=== PATIENT | female | born 1975 | race Caucasian/White ===

== ENCOUNTER → 2016-06-15 | Outpatient (CLI) | payer BC ==
[~2016-06-15] MED LIST: ACHYD1T PO; ALPR0.25 PO; ASPI-586 PO; CPR500T PO; CYCL10TA45 GT; DCS100C PO; DOCU100C37 PO; HYDR118S10 PO; IBP800T PO; IBUP-1780 PO; METO-274 PO; OXYC-465 PO; PREN1TAB39 PO; PRM25T PO
--- NOTE | 2016-06-16 14:29 | ECHOCARDIOGRAPHY REPORT ---
DATE OF SERVICE: 06/15/2016 DATE OF SERVICE: 06/15/2016. PRIMARY PHYSICIAN: Dr. Campuzano. PRIMARY CARE PHYSICIAN: Dr. Atkins. CLINICAL DIAGNOSES: Palpitations, paroxysmal atrial fibrillation. MEASUREMENTS: Left atrium: 3.4. Aortic root: 2.6. LV diameter diastolic: 4.8. IVS thickness diastolic: 0.8. LVPW thickness diastolic: 0.9. DESCRIPTION: Two-dimensional echocardiography shows normal global left ventricular systolic function without any distinctive regional wall motion abnormality. Aortic, mitral and tricuspid valve leaflets show good leaflet excursion. Aortic valve appears to be trileaflet. Doppler imaging does not indicate any evidence of any significant valvular stenosis. Trivial to mild mitral, tricuspid and pulmonic regurgitation is seen. Pulmonary artery systolic pressure is estimated to be approximately 25 mmHg. There is no evidence of any significant intracardiac shunt on this transthoracic echocardiographic study. Inferior vena cava is of normal size. CONCLUSIONS: 1. Normal global left ventricular systolic function with an ejection fraction of approximately 60%. 2. Trivial to mild mitral, tricuspid and pulmonic regurgitation. 3. No evidence of any significant valvular stenosis. 4. Pulmonary artery systolic pressure is estimated to be approximately 25 mmHg. Job ID: [id number] DocumentID: [id number] Dictated Date: 06/16/2016 10:07:43 Rotary Drum Tanner Date: 06/16/2016 13:51:11 Dictated By: DAVE CAMPUZANO MD, MA, FACP, FACC,
== END ==
LOC: CARD 07:50
PROVIDERS: ATTEND Internal Medicine Cardiovascular Disease
DX: I48.0 Paroxysmal atrial fibrillation (principal); R00.2 Palpitations
CPT/HCPCS: 93306

== ENCOUNTER 2016-06-24 17:00 | Outpatient (CLI) | payer BC | END 2016-06-24 17:25 | disposition home or self-care (01) | LOC: SLEEP 17:00 | PROVIDERS: ATTEND Nurse Practitioner Family | DX: G47.33 Obstructive sleep apnea (adult) (pediatric) (principal) ==

== ENCOUNTER → 2016-09-20 | Outpatient (CLI) | payer BC | LOC: RAD 07:31 | PROVIDERS: ATTEND Obstetrics & Gynecology | DX: Z12.31 Encounter for screening mammogram for malignant neoplasm of breast (principal) | CPT/HCPCS: 77067 ==

== ENCOUNTER 2016-12-13 09:49 | Emergency (ER) | payer OTHER, BC ==
[~2016-12-13] VITALS: Ht 165.1 cm; Wt 99.8 kg
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
[2016-12-13] MEDS ORDERED: APIX2.5T PO (10:06)
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
[2016-12-13] MEDS ORDERED: CYCL10TA9 PO (11:05)
[2016-12-13 11:18] VITALS: BP 124/73
== END 2016-12-13 11:18 | disposition home or self-care (01) ==
LOC: EDUNIT# 09:49 → ER 09:51
DX: M54.2 Cervicalgia (principal); I48.91 Unspecified atrial fibrillation; Z79.01 Long term (current) use of anticoagulants; Z98.890 Other specified postprocedural states; Z87.59 Personal history of other complications of pregnancy, childbirth and the puerperium; Z90.710 Acquired absence of both cervix and uterus; V49.60XA Unspecified car occupant injured in collision with unspecified motor vehicles in traffic accident, initial encounter
CPT/HCPCS: 70450; 72125; 99282

== ENCOUNTER → 2017-05-24 | Outpatient (CLI) | payer BC, OTHER ==
[~2017-05-24] MED LIST changes: +APIX2.5T PO; +CYCL10TA9 PO; -METO-274 PO; +METO-395 PO
--- NOTE | 2017-05-24 10:55 | Diagnostic Imaging Report ---
INDICATION: Right breast pain and right breast lump in the upper outer aspect. This study was performed for further evaluation. COMPARISON: Correlation is made with a diagnostic mammogram from 05/24/2017. FINDINGS: Sonographic interrogation of the area of palpable abnormality in the upper-outer right breast was performed. No solid or cystic mass is identified. IMPRESSION: No sonographic abnormality is identified. Continued close clinical and self breast exams are recommended to confirm stability of the palpable abnormality. ACR BI-RADS Category 1: Negative. Dictated by: Dictated on workstation # [id number]
--- NOTE | 2017-05-24 10:58 | Diagnostic Imaging Report ---
INDICATION: Mastalgia on the right with a palpable lump in the upper-outer right breast. COMPARISON: Correlation is made with the prior mammogram from 09/20/2016. TECHNIQUE: A BB marker was placed at the area of palpable abnormality in the upper-outer right breast at posterior depth. 3D CC, MLO, ML, and exaggerated CC views of the right breast were obtained. The current study was also evaluated with a Computer Aided Detection (CAD) system. FINDINGS: The right breast is primarily involutional. The parenchymal pattern is stable. There is a tiny well-defined nodule in the upper right breast which appears stable and most consistent with a benign etiology. No spiculated mass or malignant appearing microcalcifications are seen. Specifically, no abnormality at the area of the BB marker is identified. The right axilla is unremarkable. IMPRESSION: Stable right mammogram. No suspicious abnormality is seen. Even so, directed sonographic interrogation of the area of palpable abnormality in the right breast is recommended and will be performed this morning. ACR BI-RADS Category 0: Incomplete. (Needs additional imaging evaluation). Result letter will be mailed to the patient. Note: At least 10% of breast cancer is not imaged by mammography. Dictated by: Dictated on workstation # [id number]
== END ==
LOC: RAD 08:01
PROVIDERS: ATTEND Family Medicine
DX: N63.11 Unspecified lump in the right breast, upper outer quadrant (principal)

== ENCOUNTER → 2019-01-28 | Outpatient (CLI) | payer BC ==
[~2019-01-28] VITALS: Ht 165.1 cm; Wt 68.2 kg
--- NOTE | 2019-01-28 15:01 | Diagnostic Imaging Report ---
INDICATION: Right hip pain. Patient presents for right hip injection prior to MRI. FINDINGS: Patient was brought to the procedure room, placed on the table in the supine position. Skin of the right hip was prepped and draped in the usual sterile fashion. Small amount of 1% lidocaine was utilized for local anesthesia. 20-gauge needle was advanced, placed with its tip at the femoral head neck junction laterally. 15 mL solution of iodinated contrast, normal saline, and gadolinium was injected under fluoroscopic observation. 19 seconds of fluoroscopic time was utilized. Needle was removed and hemostasis was obtained. Patient tolerated the procedure well and was sent to MRI in satisfactory condition. IMPRESSION: Successful right hip injection of gadolinium contrast solution, using fluoroscopy. Dictated by: Dictated on workstation # [id number]
--- NOTE | 2019-01-28 15:37 | Diagnostic Imaging Report ---
EXAMINATION: Magnetic resonance imaging of the pelvis and right hip with intra-articular contrast. DATE: January 28, 2019. COMPARISON: Right hip arthrogram January 28, 2019. CT abdomen and pelvis November 28, 2013. INDICATION: 43-year-old female, right hip pain. TECHNIQUE: Magnetic Resonance Imaging sequences were performed of the pelvis and right hip following the intra-articular administration of contrast. TENDONS AND MUSCLES: The gluteus damari muscles and their origins and insertions are intact bilaterally. There is feathery edema in the right gluteus minimus muscle at and above the level of the myotendinous junction, consistent with a low-grade tendinous strain injury. The right gluteus minimus tendon itself is intact. The right gluteus medius tendon is intact. The left gluteus minimus and medius tendons and muscles are intact. Both common hamstring attachments on the ischial tuberosities are intact and the extensor muscles of the thigh are intact. The visualized portions of the flexors and adductor muscles of the thigh and their attachments on the pelvis and hips are intact. Both iliopsoas and iliacus muscles are intact. The bilateral iliopsoas tendons are intact. HIPS AND SACROILIAC JOINTS: The contours of the femoral heads and acetabuli are smooth and symmetric. There is a tear involving the right hip anterosuperior labrum, best illustrated on axial oblique sequence series 2 image 9. There is no associated paralabral cyst. The additional labrum appears intact. There is no identified cartilage defect. There is no synovitis or identified intra-articular body. The left hip joint space appears well preserved. There is no identified fluid filled left hip labral tear or paralabral cyst on large [id number] evaluation. There is no left hip joint effusion. The sacroiliac joints are unremarkable. LUMBAR SPINE: There is mild disc height loss at L3-L4. BONE: The bones all have normal configuration. The bone marrow signal is within normal limits. Specifically, negative for fracture, osteomyelitis, osteonecrosis, or marrow replacing process. BURSAE AND SOFT TISSUES: There is a small amount of free pelvic fluid which may be physiologic. There are bilateral ovarian follicles. Additional bursal and soft tissue assessment is unremarkable. IMPRESSION: 1. Tear of the right hip anterosuperior labrum without paralabral cyst. No identified cartilage defect or pronounced arthritis of either hip. 2. Low-grade myotendinous strain injury of the right gluteus minimus. 3. Negative for tendon tear. 4. No acute fracture, bone contusion, or evidence of osteonecrosis. 5. Mild disc height loss at L3-L4. There is limited evaluation of the lumbar spine on this exam. Dictated by: Dictated on workstation # [id number]
== END ==
LOC: RAD 13:20
PROVIDERS: ATTEND Orthopaedic Surgery
DX: S73.191A Other sprain of right hip, initial encounter (principal); S76.011A Strain of muscle, fascia and tendon of right hip, initial encounter; M51.36 Other intervertebral disc degeneration, lumbar region; M24.151 Other articular cartilage disorders, right hip
CPT/HCPCS: 27093; 73525; 73722

== ENCOUNTER → 2019-09-30 | Outpatient (CLI) | payer BC ==
[~2019-09-30] MED LIST changes: -METO-395 PO; +MTP100TCR PO
--- NOTE | 2019-09-30 17:25 | Diagnostic Imaging Report ---
EXAMINATION: Lumbar spine radiographs, 3 views. COMPARISON: None. HISTORY: 44-year-old female, low back pain. FINDINGS: There are 5 lumbar-type vertebral bodies. There is mild disc height loss and osteophyte formation at L3-L4. There is moderate disc height loss at L5-S1. There are mild disc degenerative changes of the lower thoracic spine. There are left greater than right facet degenerative changes at L4-L5 and mild bilateral facet degenerative changes at L5-S1. The sacroiliac joints are unremarkable in appearance. There is no identified compression deformity or other fracture. There are surgical clips in the upper abdomen. IMPRESSION: 1. Disc and facet degenerative changes of the thoracolumbar spine, as described above. 2. No identified compression deformity. Dictated by: Dictated on workstation # [id number]
== END ==
LOC: RAD 16:22
PROVIDERS: ATTEND Family Medicine
DX: M47.815 Spondylosis without myelopathy or radiculopathy, thoracolumbar region (principal); M51.37 Other intervertebral disc degeneration, lumbosacral region; M47.817 Spondylosis without myelopathy or radiculopathy, lumbosacral region
CPT/HCPCS: 72100

== ENCOUNTER → 2019-10-07 | Outpatient (CLI) | payer BC ==
--- NOTE | 2019-10-07 10:05 | Diagnostic Imaging Report ---
INDICATION: Routine screening. COMPARISON: 10/05/2018 and 10/03/2017. TECHNIQUE: 2D and 3D bilateral screening mammography was performed with CAD. FINDINGS: Both breasts are heterogeneously dense, limiting the sensitivity of mammography. The tiny circumscribed nodules in the upper outer right breast are stable. No new mass or malignant appearing microcalcifications are seen. The axillae are unremarkable. IMPRESSION: No mammographic features suspicious for malignancy are identified. ACR BI-RADS Category 2: Benign findings. Result letter will be mailed to the patient. Note: At least 10% of breast cancer is not imaged by mammography. Dictated by: Dictated on workstation # [id number]
== END ==
LOC: RAD 07:45
PROVIDERS: ATTEND Family Medicine
DX: Z12.31 Encounter for screening mammogram for malignant neoplasm of breast (principal)
CPT/HCPCS: 77063; 77067

== ENCOUNTER → 2020-07-30 | Outpatient (CLI) | payer BC ==
[~2020-07-30] MED LIST changes: -OXYC-465 PO; +OXYC-556 PO
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
== END ==
LOC: RAD 08:00
PROVIDERS: ATTEND Nurse Practitioner
DX: M79.89 Other specified soft tissue disorders (principal)
CPT/HCPCS: 73221

== ENCOUNTER → 2020-10-07 | Outpatient (CLI) | payer BC ==
--- NOTE | 2020-10-07 08:28 | Progress Note-Pre Operative ---
Pre-Operative Progress Note H&P Reviewed Date Seen by Provider: Oct 07, 2020 Time Seen by Provider: 20:34 Date H&P Reviewed: Oct 07, 2020 Time H&P Reviewed: 20:34 Pre-Operative Diagnosis: wrong patient - delete this LONI NIFANTE MD Oct 07, 2020 08:28
--- NOTE | 2020-10-07 08:29 | Progress Note-Post Operative ---
Post-Operative Progess Note Surgeon (s)/Handle Assembler (s) Surgeon LONI INFANTE MD Handle Assembler: no Pre-Operative Diagnosis no Post-Operative Diagnosis wrong patient Procedure & Operative Findings Date of Procedure 10/07/20 Procedure Performed/Findings none Anesthesia Type no Estimated Blood Loss Estimated blood loss (mL): 0 Specimens/Packing Specimens Removed wrong patient - delete this please LONI INFANTE MD Oct 07, 2020 08:29
--- NOTE | 2020-10-07 09:34 | Diagnostic Imaging Report ---
INDICATION: Routine screening. COMPARISON: 10/07/2019 and 10/05/2018. TECHNIQUE: 2D and 3D bilateral screening mammography was performed with CAD. FINDINGS: Both breasts are heterogeneously dense, limiting the sensitivity of mammography. The parenchymal pattern is stable. No mass or malignant-appearing microcalcifications are seen. The axillae are unremarkable. IMPRESSION: No mammographic features suspicious for malignancy are identified. ACR BI-RADS Category 1: Negative. Result letter will be mailed to the patient. Note: At least 10% of breast cancer is not imaged by mammography. Dictated by: Dictated on workstation # [id number]
== END ==
LOC: RAD 07:30
PROVIDERS: ATTEND Obstetrics & Gynecology
DX: Z12.31 Encounter for screening mammogram for malignant neoplasm of breast (principal)
CPT/HCPCS: 77063; 77067

== ENCOUNTER → 2021-01-28 | Outpatient (CLI) | payer BC ==
[~2021-01-28] MED LIST changes: +CYCL10TA25 PO; -CYCL10TA9 PO
--- NOTE | 2021-01-28 10:52 | Diagnostic Imaging Report ---
PROCEDURE: Pelvic comp/transvaginal sonogram. TECHNIQUE: Complete transabdominal and transvaginal pelvic ultrasound was performed. In addition, limited pelvic Doppler was performed. INDICATION: Right lower quadrant pain. FINDINGS: The uterus is surgically absent. The right ovary measures 3.1 x 2.5 x 1.9 cm, and the left ovary measures 4.0 x 2.9 x 2.5 cm. Both ovaries contain multiple follicles. There appears to be a complex cyst in the left ovary measuring approximately 16 mm in size. There is blood flow to both ovaries. No free fluid is identified. IMPRESSION: 1. Status post hysterectomy. 2. 16 mm complex left ovarian cyst. The study is otherwise unremarkable. Dictated by: Dictated on workstation # [id number]
== END ==
LOC: RAD 10:00
PROVIDERS: ATTEND Family Medicine
DX: N83.202 Unspecified ovarian cyst, left side (principal); R10.31 Right lower quadrant pain; Z90.710 Acquired absence of both cervix and uterus
CPT/HCPCS: 76830; 76856

== ENCOUNTER → 2021-03-26 | Outpatient (CLI) | payer BC ==
--- NOTE | 2021-03-26 15:44 | Diagnostic Imaging Report ---
PROCEDURE: CT abdomen and pelvis without contrast. TECHNIQUE: Multiple contiguous axial images were obtained through the abdomen and pelvis without the use of intravenous contrast. Auto Exposure Controls were utilized during the CT exam to meet ALARA standards for radiation dose reduction. INDICATION: Microhematuria. Left-sided flank pain. COMPARISON: 11/28/2013. FINDINGS: The heart is unremarkable. The lung bases are clear. No evidence of obstructing calculi. There is mild prominence of the collecting systems, bilaterally. The urinary bladder is decompressed with mild bladder wall thickening. The liver, spleen, pancreas and adrenal glands have a normal appearance. There is no pathologically enlarged mesenteric or retroperitoneal adenopathy. Gastric bypass changes are visualized in the upper abdomen. Non-dilated fluid-filled loops of small bowel are seen throughout the abdomen and pelvis. A moderate amount of stool is seen in the colon. Normal appendix is seen in the right lower quadrant. There is no free fluid or free air. No acute osseous abnormalities. There is no free air, loculated collection, or adenopathy in the pelvis. IMPRESSION: 1. No evidence of obstructing calculi. There is mild prominence of the collecting system, bilaterally. Additional mild bladder wall thickening is seen which may be due to inadequate distention versus cystitis. Recommend correlation with UA and follow-up as indicated. 2. Fluid-filled nondilated loops of small bowel through the abdomen and pelvis. Findings can be seen with enteritis. 3. Moderate amount of stool in the colon suggestive of constipation. Dictated by: Dictated on workstation # [id number]
== END ==
LOC: RAD 14:45
PROVIDERS: ATTEND Urology
DX: R10.9 Unspecified abdominal pain (principal); R31.29 Other microscopic hematuria; N32.89 Other specified disorders of bladder
CPT/HCPCS: 74176

== ENCOUNTER → 2021-09-20 | Outpatient (CLI) | payer BC ==
[~2021-09-20] MED LIST changes: +GADOTERATE 0.5 MMOL/ML (CLARISCAN) 15 ML VIAL IV ONE; +IOHEXOL 240 MGI/ML 50 ML (OMNIPAQUE) VIAL IV ONE
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
--- NOTE | 2021-09-20 14:10 | Diagnostic Imaging Report ---
INDICATION: Left shoulder pain. Patient brought to the procedure room placed on table in the supine position. Skin of the left shoulder was prepped and draped in usual sterile fashion. Small amount of 1% lidocaine was utilized for local anesthesia. 21-gauge needle was advanced into the left shoulder at the rotator interval. A 15 mL solution of iodinated contrast, normal saline and gadolinium was injected under fluoroscopic observation. 11 seconds of fluoroscopic time was utilized. The needle was withdrawn, hemostasis was obtained. Patient tolerated the procedure well and was sent to MRI in satisfactory condition. IMPRESSION: Successful left shoulder injection of gadolinium contrast solution, using fluoroscopy. Dictated by: Dictated on workstation # [id number]
== END ==
LOC: RAD 12:00
PROVIDERS: ATTEND Family Medicine Sports Medicine
DX: S43.432A Superior glenoid labrum lesion of left shoulder, initial encounter (principal); M19.012 Primary osteoarthritis, left shoulder; V29.9XXA Motorcycle rider (driver) (passenger) injured in unspecified traffic accident, initial encounter
CPT/HCPCS: 23350; 73040; 73222

== ENCOUNTER → 2021-11-09 | Outpatient (CLI) | payer BC ==
[~2021-11-09] MED LIST changes: -GADOTERATE 0.5 MMOL/ML (CLARISCAN) 15 ML VIAL IV ONE; -IOHEXOL 240 MGI/ML 50 ML (OMNIPAQUE) VIAL IV ONE
--- NOTE | 2021-11-09 14:49 | Diagnostic Imaging Report ---
Indication: Routine screening. Comparison is made with prior mammogram from 10/07/2020 and 10/07/2019. 2-D and 3-D bilateral screening mammography was performed with CAD. CAD is utilized. The current study was also evaluated with a Computer Aided Detection (CAD) system. Both breasts are heterogeneously dense, limiting the sensitivity of mammography. The parenchymal pattern is stable. No mass or malignant-appearing microcalcifications are seen. Axillae are unremarkable. IMPRESSION: BI-RADS Category 1 No mammographic features suspicious for malignancy are identified. ACR BI-RADS Category 1: Negative. Result letter will be mailed to the patient. Note: At least 10% of breast cancer is not imaged by mammography. Dictated by: Dictated on workstation # [id number]
== END ==
LOC: RAD 07:45
PROVIDERS: ATTEND Family Medicine
DX: Z12.31 Encounter for screening mammogram for malignant neoplasm of breast (principal)
CPT/HCPCS: 77063; 77067

== ENCOUNTER → 2021-11-25 | Outpatient (CLI) | payer BC ==
[~2021-11-25] VITALS: Ht 165.1 cm; Wt 72.7 kg
[~2021-11-25] MED LIST changes: +GADOTERATE 0.5 MMOL/ML (CLARISCAN) 15 ML VIAL IV ONE; +IOHEXOL 240 MGI/ML 50 ML (OMNIPAQUE) VIAL IV ONE; +LIDOCAINE 1% INJ 10 ML VIAL INJ ONE; +LIDOCAINE 1% INJ 10 ML VIAL ONE
--- NOTE | 2021-11-25 15:40 | Diagnostic Imaging Report ---
EXAMINATION: Magnetic resonance imaging of the left wrist with intra-articular contrast DATE: November 25, 2021. COMPARISON: Left wrist arthrogram November 25, 2021. HISTORY: 46-year-old female, left wrist pain. TECHNIQUE: Magnetic Resonance Imaging sequences were performed of the wrist following the intra-articular administration of contrast. FINDINGS: TRIANGULAR FIBROCARTILAGE COMPLEX: The triangular fibrocartilage disc, dorsal radioulnar ligament, volar radioulnar ligament, ulnolunate ligament, ulnotriquetral ligament, extensor carpi ulnaris tendon and sheath, meniscal homologue are intact. INTRINSIC LIGAMENTS: There is a tear involving the central membranous portion and dorsal band of the scapholunate ligament. There is no widening of the scapholunate interval. The lunotriquetral ligament is intact. JOINTS: The radiocarpal, intercarpal, and distal radioulnar joints are intact. There is no joint effusion. CARPAL TUNNEL: The flexor retinaculum is unremarkable. The flexor digitorum superficialis and profundus are intact. The median nerve is unremarkable. FLEXOR TENDONS: The flexor carpi ulnaris, flexor pollicis longus and carpi radialis are intact. EXTENSOR TENDONS: There is fluid in the second extensor compartment tendon sheath which is within normal limits following arthrogram procedure. Additional evaluation of the extensor tendons is unremarkable. BONE: There is edema involving the dorsal aspect of the distal radial epiphysis without a visible fracture line. This is most consistent with bone contusion. The additional bone marrow signal is unremarkable. BURSAE AND SOFT TISSUES: The bursae and soft tissues surrounding the wrist are within normal limits. IMPRESSION: 1. Tear involving the central membranous portion and dorsal band of the scapholunate ligament without widening of the scapholunate interval. 2. Intact lunotriquetral ligament. 3. Intact triangular fibrocartilage complex. 4. Bone contusion of the dorsal aspect of the distal radial epiphysis without identified fracture line. 5. Intact tendons. Dictated by: Dictated on workstation # [id number]
--- NOTE | 2021-11-25 15:48 | Diagnostic Imaging Report ---
INDICATION: Left wrist pain. Patient presents for fluoroscopically assisted gadolinium contrast injection prior to MRI. Patient was brought to the procedure room and placed on the table in the prone position. The dorsum of the left wrist was prepped and draped in the usual sterile fashion. A small amount of 1% lidocaine was utilized for local anesthesia. A 22-gauge needle was advanced and placed with its tip at the radiocarpal joint. Approximately 3 mL of iodinated contrast, normal saline, and gadolinium were injected under fluoroscopic observation. Needle was withdrawn, and hemostasis was obtained. A total of 15 seconds of fluoroscopic time was utilized. Patient tolerance the procedure well and was sent to MRI in satisfactory condition. IMPRESSION: Successful left wrist gadolinium contrast solution injection, using fluoroscopy. Dictated by: Dictated on workstation # [id number]
== END ==
LOC: RAD 13:30
PROVIDERS: ATTEND Orthopaedic Surgery
DX: S63.522D Sprain of radiocarpal joint of left wrist, subsequent encounter (principal); X58.XXXD Exposure to other specified factors, subsequent encounter
CPT/HCPCS: 25246; 73115; 73222

== ENCOUNTER 2022-05-11 08:26 | Outpatient (RCR) | payer BC ==
[~2022-05-11 08:26] MED LIST changes: -GADOTERATE 0.5 MMOL/ML (CLARISCAN) 15 ML VIAL IV ONE; -IOHEXOL 240 MGI/ML 50 ML (OMNIPAQUE) VIAL IV ONE; -LIDOCAINE 1% INJ 10 ML VIAL INJ ONE; -LIDOCAINE 1% INJ 10 ML VIAL ONE
== END 2022-05-13 | disposition home or self-care (01) ==
PROVIDERS: ATTEND Physical Therapist
DX: M25.561 Pain in right knee (principal); Z96.651 Presence of right artificial knee joint

== ENCOUNTER 2022-06-09 15:11 | Outpatient (RCR) | payer BC | END 2022-06-12 | disposition home or self-care (01) | PROVIDERS: ATTEND Physical Therapist | DX: Z96.651 Presence of right artificial knee joint (principal) ==

== ENCOUNTER 2022-06-30 08:29 | Outpatient (RCR) | payer BC | END 2022-06-30 09:17 | disposition home or self-care (01) | PROVIDERS: ATTEND Physical Therapist | DX: M25.561 Pain in right knee (principal); Z96.651 Presence of right artificial knee joint ==

== ENCOUNTER → 2022-09-23 | Outpatient (CLI) | payer BC ==
[~2022-09-23] VITALS: Ht 165.1 cm; Wt 72.7 kg
[~2022-09-23] MED LIST changes: +GADOTERATE 0.5 MMOL/ML (CLARISCAN) 15 ML VIAL IV ONE; +IOHEXOL 240 MGI/ML 50 ML (OMNIPAQUE) VIAL IV ONE; +LIDOCAINE 1% INJ 10 ML VIAL INJ ONE
--- NOTE | 2022-09-23 12:56 | Diagnostic Imaging Report ---
PROCEDURE: MRI upper extremity any joint with contrast right. TECHNIQUE: Multiplanar, multisequence contrast-enhanced MRI of the right upper extremity was accomplished. INDICATION: Superior glenoid lesion of the right shoulder. Rotator cuff tear. COMPARISON: None FINDINGS: No acute fracture seen in the right shoulder. Alignment appears normal. The joint is distended with contrast. There is mild extravasation at the inferior joint posteriorly. There does appear to be high-grade partial-thickness tearing at the undersurface of the supraspinatus and infraspinatus tendons distally, appears to be moderate in size measuring approximately 2.5 cm in length. The teres minor tendon appears intact. The subscapularis tendon appears to have articular surface low-grade partial tearing. No muscular atrophy is seen. The long head biceps tendon is normal in course and signal. The right glenoid labrum demonstrates irregularity superiorly near the biceps anchor, could represent a small tear. There is no para labral cyst. The acromion has a curved undersurface. The coracoclavicular and coracoacromial ligaments are intact. There are mild degenerative changes in the acromioclavicular joint. IMPRESSION: 1. Moderate-sized high-grade partial-thickness tearing at the undersurface of the supraspinatus tendon. 2. Suspect small tear at the superior glenoid labrum. No para labral cyst. 3. Mild degenerative changes in the acromioclavicular joint. Dictated by: Dictated on workstation # [id number]
--- NOTE | 2022-09-23 13:03 | Diagnostic Imaging Report ---
INDICATION: Right shoulder pain. The patient was brought to the procedure room and placed on the table in the supine position. The right shoulder was prepped and draped in the usual sterile fashion. A small amount of 1% lidocaine was utilized for local anesthesia. A 22-gauge needle was advanced into the right shoulder at the rotator interval. A 15 mm solution of iodinated contrast, normal saline and gadolinium was injected under fluoroscopic observation. Needle was removed and hemostasis was obtained. Patient tolerated the procedure well and was sent to MRI in satisfactory condition. Two images of the right shoulder were obtained. A total of 7 seconds of fluoroscopic time was utilized. IMPRESSION: Successful right shoulder injection of gadolinium contrast solution, using fluoroscopy. Dictated by: Dictated on workstation # [id number]
== END ==
LOC: RAD 09:45
PROVIDERS: ATTEND Orthopaedic Surgery
DX: S46.811A Strain of other muscles, fascia and tendons at shoulder and upper arm level, right arm, initial encounter (principal); S43.431A Superior glenoid labrum lesion of right shoulder, initial encounter; M19.011 Primary osteoarthritis, right shoulder; M75.121 Complete rotator cuff tear or rupture of right shoulder, not specified as traumatic; X58.XXXA Exposure to other specified factors, initial encounter
CPT/HCPCS: 23350; 73040; 73222

== ENCOUNTER 2022-11-10 09:09 | Outpatient (RCR) | payer BC ==
[~2022-11-10 09:09] MED LIST changes: -GADOTERATE 0.5 MMOL/ML (CLARISCAN) 15 ML VIAL IV ONE; -IOHEXOL 240 MGI/ML 50 ML (OMNIPAQUE) VIAL IV ONE; -LIDOCAINE 1% INJ 10 ML VIAL INJ ONE
== END 2022-11-12 | disposition home or self-care (01) ==
PROVIDERS: ATTEND Orthopaedic Surgery
DX: M75.121 Complete rotator cuff tear or rupture of right shoulder, not specified as traumatic (principal); Z98.890 Other specified postprocedural states

== ENCOUNTER 2022-12-12 15:10 | Outpatient (RCR) | payer BC | END 2022-12-13 | disposition home or self-care (01) | PROVIDERS: ATTEND Orthopaedic Surgery | DX: M75.121 Complete rotator cuff tear or rupture of right shoulder, not specified as traumatic (principal) ==

== ENCOUNTER → 2022-12-27 | Outpatient (CLI) | payer BC ==
--- NOTE | 2022-12-27 15:08 | Diagnostic Imaging Report ---
EXAMINATION: 3D bilateral screening mammogram with CAD. INDICATION: Screening. COMPARISON: This study was compared to the prior exams of 11/09/2021, 10/07/2020, and 10/07/2019. PERSONAL HISTORY: At this time, there are no current complaints. FINDINGS: The fibroglandular tissue in both breasts is heterogeneously dense. This does limit the sensitivity of this exam. Overall, there does not appear to have been any significant change when compared to the prior study. No primary or secondary sign of malignancy is noted. IMPRESSION: There is no radiographic evidence for malignancy. ACR BI-RADS Category 1: Negative. Result letter will be mailed to the patient. Note: At least 10% of breast cancer is not imaged by mammography. Dictated by: Dictated on workstation # [id number]
--- NOTE | 2022-12-27 15:44 | Diagnostic Imaging Report ---
PROCEDURE: US Non-ob pelvis comp/trans. TECHNIQUE: Multiple realtime grayscale images were obtained of the pelvis in various projections endovaginally. Transabdominal imaging was also performed. INDICATION: Right lower quadrant pain. COMPARISON: CT abdomen pelvis from 03/26/2021 FINDINGS: Hysterectomy. No mass or complex fluid collection at the hysterectomy bed. The right ovary measures 2.7 x 3.4 x 2.0 cm. The left ovary measures 3.0 x 3.0 x 2.1 cm. Both ovaries are physiologic in appearance. Blood flow is seen in both ovaries on color doppler imaging. On transvaginal imaging, limited visceral duplex imaging shows arterial blood flow into the left ovary on spectral duplex. No suspicious adnexal mass or fluid collection. No free pelvic fluid. IMPRESSION: 1. No ovarian torsion or adnexal mass. 2. Hysterectomy. Dictated by: Dictated on workstation # [id number]
== END ==
LOC: RAD 10:01
PROVIDERS: ATTEND Obstetrics & Gynecology
DX: Z12.31 Encounter for screening mammogram for malignant neoplasm of breast (principal); R10.31 Right lower quadrant pain; Z90.710 Acquired absence of both cervix and uterus
CPT/HCPCS: 76830; 76856; 77063; 77067

== ENCOUNTER → 2023-01-02 14:44 | Outpatient (RCR) | payer BC | END | disposition home or self-care (01) | PROVIDERS: ATTEND Orthopaedic Surgery | DX: M75.121 Complete rotator cuff tear or rupture of right shoulder, not specified as traumatic (principal) ==